=== PATIENT | male | born 1950 | race Caucasian/White ===

== ENCOUNTER 2018-12-19 00:51 | Inpatient (IN) | payer OTHER ==
[2018-12-19] MEDS ORDERED: EPINEPHrine 1 MG/ML AMP ONE (01:05)
[2018-12-19] MEDS ORDERED: diphenhydrAMINE 50 MG/ML VIAL ONE (01:05)
[2018-12-19] MEDS ORDERED: Famotidine/PF 20 mg/2ml Vial ONE (01:05)
[2018-12-19] MEDS ORDERED: methylPREDNISolone Sod Succ/PF 125 MG/2 ML VIAL ONE (01:05)
[2018-12-19 01:27] LABS: Hemoglobin 13.8 g/dL (14.0-18.0); Mean Corpuscular HGB CONC 33.6 g/dL (32.0-36.0); Mean Corpuscular Hemoglobin 31.1 pg (27.0-31.0); Mean Corpuscular Volume 92.8 fL (78.0-98.0); Mean Platelet Volume 7.9 fL (7.4-10.4); Platelet Count 207 thou/uL (130-400); RBC Distribution Width 12.4 % (11.5-14.5); Red Blood Cell (RBC) Count 4.45 mill/uL (4.70-6.10); White Blood Cell (WBC) Count 20.4 thou/uL (4.8-10.8)
[2018-12-19 01:42] LABS: Band 10 % (5-11); MDiff Complete? YES; Monocytes 3 % (0-10); Neutrophil 84 % (42-75); Platelet Morphology Comment Appears Adequate; RBC Morphology Normal; Reactive Lymphocytes 3 % (0-10)
[2018-12-19 01:53] LABS: ALT (SGPT) 10 U/L (8-55); AST (SGOT) 10 U/L (5-34); Albumin 3.6 g/dL (3.4-4.8); Alkaline Phosphatase 78 U/L (40-150); Anion Gap 18 mmol/L (10-20); BUN (Urea Nitrogen) 24 mg/dL (8.4-25.7); Bilirubin, Total 1.4 mg/dL (0.2-1.2); Calc. Creatinine Clearance 0 mL/min (70-130); Calcium 8.3 mg/dL (7.8-10.44); Carbon Dioxide 17 mmol/L (23-31); Chloride 101 mmol/L (98-107); Estimated GFR-MDRD 25; Globulin 2.8 g/dL (2.4-3.5); Glucose 111 mg/dL (80-115); Potassium 4.1 mmol/L (3.5-5.1); Protein, Total 6.4 g/dL (5.8-8.1); Sodium 132 mmol/L (136-145)
[2018-12-19] MEDS ORDERED: Clindamycin/D5W 900 mg/50 ml Premix Bag ONE (04:07)
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
[2018-12-19] MEDS ORDERED: Acetaminophen 500 MG TAB ONE (04:11)
[2018-12-19 04:48] LABS: Bilirubin Negative (Negative); Blood, Urine Trace (Negative); Clarity CLEAR (Clear); Glucose, Urine (Dipstick) Negative (Negative); Leukocyte Negative (Negative); Nitrite Negative (Negative); Protein, Urine (Dipstick) Negative (Neg-Trace); Specific Gravity, Urine 1.006 (1.002-1.036); Urobilinogen 0.2 mg/dL (0.2-1.0); pH, Urine 5.5 (5.0-9.0)
[2018-12-19 04:49] LABS: Bacteria/HPF None Seen HPF (None Seen); Hyaline Casts/LPF 0-3 HYALINE CAST LPF (0-3 Hyaline); Pathc Cast-AUWi Flag 0.43 (0-2.49); RBC/HPF 0-3 HPF (0-3); Squamous Epithelial 0-3 HPF (0-3); WBC/HPF 0-3 HPF (0-3)
[2018-12-19 05:31] LABS: Lactic Acid 1.7 mmol/L (0.5-2.2)
[2018-12-19] MEDS ORDERED: Acetaminophen 325 MG TAB PO PRN (06:32)
--- NOTE | 2018-12-19 08:12 | RAD ---
PORTABLE CHEST: Date: 12/19/18 HISTORY: Fever. FINDINGS: Heart size and mediastinum are within normal limits. Lungs are clear of infiltrates. No significant b chantal findings. There is some minimal subsegmental atelectatic change in the right base. IMPRESSION: Minimal parenchymal change in the right base suggestive of some subsegmental atelectasis. POS: [facility]
--- NOTE | 2018-12-19 08:14 | CT ---
PRELIMINARY REPORT/[facility]/EMERGENTY AFTER-HOURS PROCEDURE CT Abdomen and Pelvis Without Contrast EXAM DATE/TIME: 12/19/2018 3:17 AM CLINICAL HISTORY: 68 years old, male; Pain; Abdominal pain; Generalized; Patient HX: No previous exams; Er 8; Sepsis/ a bdominal pain; Patient with pustules to left thigh yesterday, went to [facility] at the correction and was g iven ancef and hydrocortisone. Patient with worsening swelling to thigh over the past day. Sudden onset swelling of lips and difficulty breathing this evening after ancef. No history of allerg ic reactions. Patient endorses chills and sweating. Endorses severe abdominal pain (generalized) for the past few hours. Denies vomiting or diarrhea. Surgical HX of appendectomy TECHNIQUE: Axial computed tomography images of the abdomen and pelvis without contrast. Coronal reformatted images were created and reviewed. COMPARISON: No relevant prior studies available. FINDINGS: Lower thorax: There is dependent atelectasis at the RIGHT lung base. ABDOMEN: Liver: The liver is within normal limits for this noncontrast study. Gallbladder and bile ducts: The gallbladder is normal. There is no evidence of biliary ductal dilatio n. Pancreas: The pancreas appears normal. No ductal dilatation. Spleen: The spleen is normal. Adrenals: The adrenal glands are normal. Kidneys and ureters: The right kidney is normal. The left kidney is normal. There is no evidence of h ydronephrosis. Stomach and bowel: The stomach is normal. The duodenum is unremarkable. Moderate diverticulosis is pr esent in the sigmoid and descending colon. Appendix: There has been an appendectomy. PELVIS: Bladder: The bladder is normal. Reproductive: The prostate gland and seminal vesicles are normal. ABDOMEN and PELVIS: Intraperitoneal space: There is a focus of extraluminal inflammation with central fat density. Bones/joints: There is moderate lumbar spinal canal stenosis on the basis of degenerative change. Soft tissues: Unremarkable. Vasculature: Normal. No abdominal aortic aneurysm. Lymph nodes: There is nonspecific LEFT inguinal reactive lymphadenopathy with surrounding inflammator y stranding. IMPRESSION: 1. There is nonspecific LEFT inguinal reactive lymphadenopathy with surrounding inflammatory strandin g. 2. There is a focus of extraluminal inflammation with central fat density. This is consistent with ac nulato epiploic appendagitis. Thank you for allowing us to participate in the care of your patient. Dictated and Authenticated by: Cruz Sibley MD 12/19/2018 3:36 AM Central Time ([place] & [place]) FINAL REPORT EMERGENCY AFTER HOURS CT ABDOMEN AND PELVIS PERFORMED WITHOUT CONTRAST ENHANCEMENT: Date: 12/19/18 HISTORY: Abdominal pain. Difficulty breathing. Severe abdominal pain for the past few hours. FINDINGS: The lung bases show atelectatic change versus some early infiltrative change in the right base. The liver, spleen, pancreas, and gallbladder regions appear unremarkable given the limitations of the noncontrast study. Right and left adrenal glands, and right and left kidneys are normal in size. No renal calculi. No si gnificant periaortic or mesenteric adenopathy. There is a mild amount of stool throughout the colon a nd colonic diverticulosis is noted. CT of pelvis was performed without contrast enhancement. Surgical clips appear to be related to previ ous appendectomy. There is an area of inflammatory change with central lucency within the epiploic fa t adjacent to the junction of the descending and sigmoid colon. There is some calcification associate d with this. I would favor that this is probably an older episode of epiploic appendagitis. There is diverticular disease in this area, but this does not have the appearance of diverticulitis. A moderat e amount of stool is seen within the colon. Of incidental note is inflammatory change in the medial aspect of the left thigh and left inguinal ad enopathy. IMPRESSION: 1. Fairly pronounced colonic diverticulosis. 2. Area of what is probably an old area of epiploic appendagitis in the descending colon. There appe ar to be some calcifications, which makes me believe that this is not acute in nature. 3. Soft tissue swelling along the medial aspect of the thigh with left inguinal adenopathy. This report is in agreement with the preliminary report issued by [facility]. POS: [facility]
[2018-12-19] MEDS ORDERED: predniSONE 20 MG TAB ONE (08:54)
[2018-12-19] MEDS: Lactated Ringer's 1,000 ML IV SCH ×3 (09:06→19:32)
[2018-12-19] MEDS: predniSONE 20 MG TAB PO SCH (09:07)
[2018-12-19] MEDS: Aspirin 81 mg Enteric Coated Tablet PO SCH (09:07)
--- NOTE | 2018-12-19 09:09 | ULT ---
SOFT TISSUE ULTRASOUND: Date: 12/19/18 HISTORY: Left leg cellulitis with pain, redness, and warm to touch for past 3 days, with concern for abscess. FINDINGS: Ultrasound examination with attention to the medial thigh through the region of clinical concern demo nstrates extensive edematous changes. There is a poorly circumscribed hypoechoic focus measuring appr oximately 1.2 x 3.3 x 3.9 cm, which certainly could represent an area of focal infection, including p hlegmon. This does not appear to be a well-defined fluid collection. IMPRESSION: 1.2 x 3.3 x 3.9 cm diameter poorly circumscribed hypoechoic focus in the medial left thigh with overl delgado subcutaneous edematous changes. Given history, this certainly could represent an area of infecti on, including a phlegmon. This could, by ultrasound appearance, represent a hematoma. This does not a ppear to be a well circumscribed easily drainable fluid collection. POS: [facility]
[2018-12-19] MEDS ORDERED: Clindamycin/D5W 600 MG in Premix Bag 1 BAG IVPB SCH (14:00)
[2018-12-19] MEDS: Heparin 5,000 UNITS/ML VIAL SC SCH ×2 (17:08→19:59)
[2018-12-19] MEDS: Vancomycin HCl 1 GM in Premix Bag 1 BAG IVPB SCH (17:28)
[2018-12-19] MEDS ORDERED: Fluticasone Propionate HFA 110 MCG AER INH SCH (18:30)
[2018-12-19] MEDS: Mometasone 100 MCG HFA INHALER INH SCH (19:31)
[2018-12-19] MEDS ORDERED: HYDROcodone/Acetaminophen 5/325 mg Tablet PO ONE (22:55)
[2018-12-20] MEDS: Lactated Ringer's 1,000 ML IV SCH ×2 (03:38→08:29)
[2018-12-20] MEDS: Vancomycin HCl 1 GM in Premix Bag 1 BAG IVPB SCH ×2 (04:28→16:14)
[2018-12-20 05:00] LABS: Anion Gap 12 mmol/L (10-20); BUN (Urea Nitrogen) 22 mg/dL (8.4-25.7); Calc. Creatinine Clearance 89 mL/min (70-130); Calcium 8.4 mg/dL (7.8-10.44); Carbon Dioxide 21 mmol/L (23-31); Chloride 110 mmol/L (98-107); Estimated GFR-MDRD 60; Glucose 139 mg/dL (80-115); Potassium 4.2 mmol/L (3.5-5.1); Sodium 139 mmol/L (136-145)
[2018-12-20 05:19] LABS: Band 25 % (5-11); Hemoglobin 11.7 g/dL (14.0-18.0); Lymphocytes 4 % (21-51); MDiff Complete? YES; Mean Corpuscular HGB CONC 32.9 g/dL (32.0-36.0); Mean Corpuscular Hemoglobin 31.1 pg (27.0-31.0); Mean Corpuscular Volume 94.4 fL (78.0-98.0); Mean Platelet Volume 8.2 fL (7.4-10.4); Metamyelocyte 2 % (0-0); Monocytes 8 % (0-10); Neutrophil 61 % (42-75); Platelet Count 170 thou/uL (130-400); Platelet Morphology Comment Appears Adequate; RBC Distribution Width 12.2 % (11.5-14.5); Red Blood Cell (RBC) Count 3.76 mill/uL (4.70-6.10); White Blood Cell (WBC) Count 15.8 thou/uL (4.8-10.8)
--- NOTE | 2018-12-20 06:15 | PDOC.FM ---
- Subjective Subjective: Mr. Moore is resting comfortably in bed, he reports the swelling in his face and leg has moved. Denies fever, erythema - Objective Vital Signs & Weight: Vital Signs (12 hours) Temp Pulse Resp BP Pulse Ox 12/20/18 04:00 97.2 F L 60 16 116/57 L 94 L 12/20/18 00:30 78 16 120/59 L 98 12/20/18 00:00 98.9 F 80 16 88/46 L 97 12/19/18 19:31 75 18 95 12/19/18 19:15 98.6 F 75 16 125/74 96 Weight Weight 108.545 kg I&O: 12/18/18 12/19/18 12/20/18 06:59 06:59 06:59 Intake Total 2870 Output Total 1850 Balance 1020 Result Diagrams: 12/21/18 04:28 12/21/18 04:27 Phys Exam - Physical Examination Constitutional: NAD HEENT: moist MMs dependent edema to R jaw, erythema improved Neck: no nodes, no JVD Respiratory: clear to auscultation bilateral Cardiovascular: RRR, no significant murmur Gastrointestinal: soft, non-tender Musculoskeletal: pulses present Neurological: moves all 4 limbs Psychiatric: normal affect Deviation from normal: decreased erythema, edema consolidated, no fluctuance noted Dx/Plan (1) Sepsis Code(s): A41.9 - SEPSIS, UNSPECIFIED ORGANISM Status: Acute (2) Cellulitis Code(s): L03.90 - CELLULITIS, UNSPECIFIED Status: Acute (3) Anaphylaxis Code(s): T78.2XXA - ANAPHYLACTIC SHOCK, UNSPECIFIED, INITIAL ENCOUNTER Status : Acute (4) COPD (chronic obstructive pulmonary disease) Status: Acute (5) GERD (gastroesophageal reflux disease) Code(s): K21.9 - GASTRO-ESOPHAGEAL REFLUX DISEASE WITHOUT ESOPHAGITIS Status: Acute (6) HTN (hypertension) Code(s): I10 - ESSENTIAL (PRIMARY) HYPERTENSION Status: Acute (7) Osteoarthritis Code(s): M19.90 - UNSPECIFIED OSTEOARTHRITIS, UNSPECIFIED SITE Status: Acute - Plan Plan: Sepsis 2/2 cellulitis - Febrile, hypotensive, leukocytosis all have resolved - Continue Vanc and Clindamycin - S/p 30ml/kg fluid resuscitation - LR @150, slow down fluids today, PO hydrate - Urine and blood cultures pending - US of leg reveals no drainable abscess, phlegmon vs hematoma - repeat US in coming days Anaphylaxis vs Angioedema - likely 2/2 Cephalexin/Cefazolin vs angioedema 2/2 lisinopril - S/p Epi, famotidine, Benadryl and methylpred in ED - Symptoms improving - Avoid penicillins - Closely monitor respiratory status HTN - Holding home amlodipine and isosorbide for hypotension - Holding lisinopril for hypotension and may have cause angioedema COPD/Asthma - Continue home Flovent - Duonebs PRN Angina - No stress or cath in records - Pt currently chest pain free - Continue home ASA CKD - Avoid nephrotoxic medications - Continue to monitor with daily BMP GERD - Continue home Omeprazole Hx of tobacco/ETOH/drug Abuse Incarceration Code Status: FULL DVT ppx: Heparin Dispo: consider transfer out of the [facility] today if pressures remain stable. Addendum - Attending - Attending Attestation Date/Time: 12/21/18 2185 I personally evaluated the patient and discussed the management with Dr. Hebert on 12/20/2018 I agree with the History, Examination, Assessment and Plan documented above with any addition or exceptions noted below- Patient feeling better; decreased pain. Afebrile VSS. A/P: 1) Cellulitis- improved; Continue current meds. 2) Sepsis with hypotension- resolving. stable for transfer from [facility]. 3) Anaphylaxis - resolved. Continue monitoring.
[2018-12-20] MEDS: Mometasone 100 MCG HFA INHALER INH SCH ×2 (07:23→19:43)
[2018-12-20] MEDS: predniSONE 20 MG TAB PO SCH (08:28)
[2018-12-20] MEDS: Heparin 5,000 UNITS/ML VIAL SC SCH ×3 (08:29→20:24)
[2018-12-20] MEDS: Aspirin 81 mg Enteric Coated Tablet PO SCH (08:29)
[2018-12-21 04:58] LABS: #Lymphocytes 1.5 thou/uL (1.20-3.40); #Monocytes 0.8 thou/uL (0.11-0.59); #Neutrophils 14.2 thou/uL (1.40-6.50); %Basophils 0.1 % (0.0-1.0); %Eosinophils 0.2 % (0.0-10.0); %Lymphocytes 9.1 % (21.0-51.0); %Monocytes 4.7 % (0.0-10.0); Hemoglobin 12.3 g/dL (14.0-18.0); Mean Corpuscular HGB CONC 32.4 g/dL (32.0-36.0); Mean Corpuscular Hemoglobin 30.6 pg (27.0-31.0); Mean Corpuscular Volume 94.7 fL (78.0-98.0); Mean Platelet Volume 8.6 fL (7.4-10.4); Platelet Count 215 thou/uL (130-400); RBC Distribution Width 12.4 % (11.5-14.5); Red Blood Cell (RBC) Count 4.03 mill/uL (4.70-6.10); White Blood Cell (WBC) Count 16.5 thou/uL (4.8-10.8)
[2018-12-21 05:17] LABS: Vancomycin, Trough 14.2 ug/mL
[2018-12-21] MEDS: Vancomycin HCl 1 GM in Premix Bag 1 BAG IVPB SCH (05:18)
[2018-12-21 05:21] LABS: Anion Gap 14 mmol/L (10-20); BUN (Urea Nitrogen) 18 mg/dL (8.4-25.7); Calc. Creatinine Clearance 113 mL/min (70-130); Calcium 8.4 mg/dL (7.8-10.44); Carbon Dioxide 19 mmol/L (23-31); Chloride 110 mmol/L (98-107); Estimated GFR-MDRD 80; Glucose 85 mg/dL (80-115); Sodium 139 mmol/L (136-145)
--- NOTE | 2018-12-21 06:30 | PDOC.FM ---
- Subjective Subjective: Mr. maravilla is sitting up in bed, he is concerned he has not showered. He reports increased localized pain and redness in thigh. denies fever - Objective Vital Signs & Weight: Vital Signs (12 hours) Temp Pulse Resp BP Pulse Ox 12/21/18 04:00 98.6 F 66 18 131/75 97 12/21/18 00:00 98 F 75 18 130/64 98 12/20/18 20:20 98.7 F 84 18 125/83 99 12/20/18 19:43 82 16 98 Weight Weight 107.456 kg Most Recent Monitor Data Heart Rate from ECG 70 NIBP 130/70 NIBP BP-Mean 90 Respiration from ECG 16 SpO2 100 I&O: 12/19/18 12/20/18 12/21/18 06:59 06:59 06:59 Intake Total 2870 3600 Output Total 1850 4075 Balance 1020 -475 Result Diagrams: 12/21/18 04:28 12/21/18 04:27 Phys Exam - Physical Examination Constitutional: NAD HEENT: moist MMs Neck: no nodes Respiratory: clear to auscultation bilateral Cardiovascular: RRR, no significant murmur Gastrointestinal: soft, non-tender Musculoskeletal: no edema, pulses present Neurological: non-focal, normal sensation Lymphatic: no nodes Deviation from normal: localized area of soft tissue edema/erythema, possible fluctuance Dx/Plan (1) Sepsis Code(s): A41.9 - SEPSIS, UNSPECIFIED ORGANISM Status: Acute (2) Cellulitis Code(s): L03.90 - CELLULITIS, UNSPECIFIED Status: Acute (3) Anaphylaxis Code(s): T78.2XXA - ANAPHYLACTIC SHOCK, UNSPECIFIED, INITIAL ENCOUNTER Status : Acute (4) COPD (chronic obstructive pulmonary disease) Status: Acute (5) GERD (gastroesophageal reflux disease) Code(s): K21.9 - GASTRO-ESOPHAGEAL REFLUX DISEASE WITHOUT ESOPHAGITIS Status: Acute (6) HTN (hypertension) Code(s): I10 - ESSENTIAL (PRIMARY) HYPERTENSION Status: Acute (7) Osteoarthritis Code(s): M19.90 - UNSPECIFIED OSTEOARTHRITIS, UNSPECIFIED SITE Status: Acute - Plan Plan: Sepsis 2/2 cellulitis - Febrile, hypotensive, have resolved. mild leukocytosis. - DC vanc, transition to PO Clindamycin - S/p 30ml/kg fluid resuscitation - DC IVF, PO hydrate - Urine and blood cultures no growth to date - US of leg reveals no drainable abscess, phlegmon vs hematoma - possible consolidation of abscess, repeat US Anaphylaxis vs Angioedema - likely 2/2 Cephalexin/Cefazolin vs angioedema 2/2 lisinopril - S/p Epi, famotidine, Benadryl and methylpred in ED - Symptoms improving - Avoid penicillins - Closely monitor respiratory status HTN - Holding home amlodipine and isosorbide for hypotension - Holding lisinopril for hypotension and may have cause angioedema COPD/Asthma - Continue home Flovent - Duonebs PRN Angina - No stress or cath in records - Pt currently chest pain free - Continue home ASA CKD - Avoid nephrotoxic medications - Continue to monitor with daily BMP GERD - Continue home Omeprazole Hx of tobacco/ETOH/drug Abuse Incarceration Code Status: FULL DVT ppx: Heparin Dispo: transition to PO abx, monitor. possible DC today or tomorrow Addendum - Attending - Attending Attestation Date/Time: 12/21/18 9331 I personally evaluated the patient and discussed the management with Dr. Hebert I agree with the History, Examination, Assessment and Plan documented above with any addition or exceptions noted below- Patient c/o pain and redness on right inner thigh. Afebrile VSS. A/P: 1) Cellulitis- overall erythema improved; area of induration but no fluctuance more demarcated on right inner thigh. tender to palpation. Will repeat soft tissue USG to evalaute for fluid collection/abscess. Continue abx. 2) Anaphylaxis- resolved. 3) HTN- increase meds.
[2018-12-21] MEDS: Mometasone 100 MCG HFA INHALER INH SCH ×2 (07:41→19:07)
[2018-12-21] MEDS: Aspirin 81 mg Enteric Coated Tablet PO SCH (09:20)
[2018-12-21] MEDS: predniSONE 20 MG TAB PO SCH (09:20)
[2018-12-21] MEDS: Heparin 5,000 UNITS/ML VIAL SC SCH ×3 (09:21→20:47)
[2018-12-21] MEDS: Clindamycin 150 MG CAP PO SCH ×3 (10:39→20:47)
--- NOTE | 2018-12-21 13:17 | ULT ---
SOFT TISSUE ULTRASOUND: HISTORY: Followup abnormal findings in left thigh in a patient with cellulitis and redness with concern for ab scess. COMPARISON: 12/19/2018. FINDINGS: Again noted is extensive superficial subcutaneous edematous changes and swelling. There is noted to be a slightly more well defined hypoechoic process in what appears to be the deep portion of the supe rficial soft tissue superficial to underlying muscle. This abnormal well defined collection measures approximately 0.8 cm in anterior posterior dimension and approximately 4.3 cm in craniocaudal dimens ion and approximately 4.7 cm transversely. This is in the region of the previously noted somewhat mo re well defined hypoechoic process. This does appear to be more well defined on today's study and th e technologist indicates that when she compressed the region overlying this area that this slightly h ypoechoic echogenic material within this collection did show movement and motion. This certainly cou ld represent a very thick exudative abscess or focal area of tissue necrosis or even a hematoma. I d o not think that this would be very easily percutaneously drainable because of the very thick echogen ic material within it. It could possibly be aspirated with ultrasound guidance for culture. IMPRESSION: Somewhat more well defined echogenic collection within the deep portion of the superficial soft tissu es overlying musculature. This echogenic material did show some movement or motion when compressed a nd possibilities include that of abscess, necrotic material, or hematoma. This area is somewhat more defined and somewhat larger than on the prior study of 12/19/2018. CODE T POS: [facility]
--- NOTE | 2018-12-21 18:27 | HP ---
HISTORY OF PRESENT ILLNESS: Anant Moore is a 68-year-old male, incarcerated for 2 years, presents to the hospital with a 5-day history of left medial thigh infection. He initially noticed it is too small bump, scratched, and they become larger. He has been hospitalized since 12/19/2018 on the [facility] service. Initially, ultrasound of the medial left thigh did not reveal anything to suggest an abscess, but today repeat ultrasounds suggest a deeper collection of an abscess or necrotic material hematoma and is somewhat larger than the prior study. He dinner. Plan is to drain this under anesthesia tomorrow. He understands wound will be left open secondary intention. ALLERGIES: PENICILLIN, LISINOPRIL, AND FENTANYL. SOCIAL HISTORY: Tobacco abuse in the past prior to incarceration, none for 2 years. Alcohol, occasional use prior to incarceration. MEDICATIONS: At home; Flovent, Proventil HFA, isosorbide mononitrate, Norvasc, aspirin, Cleocin. In the hospital; he is on clindamycin. PAST SURGICAL HISTORY: 1. Appendectomy. 2. Spinal surgery. 3. History of tobacco abuse. 4. COPD. PHYSICAL EXAMINATION: VITAL SIGNS: Height 6 foot 3 inches, weight 336 pounds, 29 BMI. Temperature 98.5, 133/69, 90. HEAD, EARS, EYES, NOSE, AND THROAT: Unremarkable. LUNGS: Clear to auscultation. CARDIAC: Regular rate and rhythm without murmur or gallop. ABDOMEN: Soft and nontender. EXTREMITIES: Left medial thigh redness, induration and deep tissues, they are suggesting perhaps an abscess, certainly induration. DIAGNOSTIC STUDIES: White count 86405 down from 20,000 on admission up from 16,000 yesterday. Basic metabolic profile normal. ASSESSMENT AND PLAN: Left medial thigh abscess. PLAN: Incision and drainage under anesthesia tomorrow. The wound will be left open, heal by secondary intention. Job ID: [id number]
[2018-12-22] MEDS: Clindamycin 150 MG CAP PO SCH ×4 (02:39→20:31)
--- NOTE | 2018-12-22 06:43 | PDOC.FM ---
- Subjective Subjective: Mr. Moore is sleeping comfortably in bed, he denies fever or chills. - Objective Vital Signs & Weight: Vital Signs (12 hours) Temp Pulse Resp BP Pulse Ox 12/22/18 04:34 98.3 F 61 18 133/75 95 12/21/18 20:40 98.2 F 60 18 132/68 96 Weight Weight 107.456 kg Most Recent Monitor Data Heart Rate from ECG 70 NIBP 170/88 NIBP BP-Mean 115 Respiration from ECG 16 SpO2 98 I&O: 12/20/18 12/21/18 12/22/18 06:59 06:59 06:59 Intake Total 2870 3600 1510 Output Total 1850 4075 1475 Balance 1020 -475 35 Result Diagrams: 12/22/18 07:41 12/22/18 07:41 Phys Exam - Physical Examination Constitutional: NAD (d) HEENT: moist MMs Neck: no JVD Gastrointestinal: no distention Musculoskeletal: no edema Neurological: moves all 4 limbs Psychiatric: normal affect Dx/Plan (1) Sepsis Code(s): A41.9 - SEPSIS, UNSPECIFIED ORGANISM Status: Acute (2) Cellulitis Code(s): L03.90 - CELLULITIS, UNSPECIFIED Status: Acute (3) Anaphylaxis Code(s): T78.2XXA - ANAPHYLACTIC SHOCK, UNSPECIFIED, INITIAL ENCOUNTER Status : Acute (4) COPD (chronic obstructive pulmonary disease) Status: Acute (5) GERD (gastroesophageal reflux disease) Code(s): K21.9 - GASTRO-ESOPHAGEAL REFLUX DISEASE WITHOUT ESOPHAGITIS Status: Acute (6) HTN (hypertension) Code(s): I10 - ESSENTIAL (PRIMARY) HYPERTENSION Status: Acute (7) Osteoarthritis Code(s): M19.90 - UNSPECIFIED OSTEOARTHRITIS, UNSPECIFIED SITE Status: Acute - Plan Plan: Sepsis 2/2 cellulitis - Febrile, hypotensive, have resolved. mild leukocytosis. - PO Clindamycin - S/p 30ml/kg fluid resuscitation, DC IVF, PO hydrate - Urine and blood cultures no growth to date - US of leg reveals density, possible abscess - general surgery consult, I&D under anesthesia today Anaphylaxis vs Angioedema - likely 2/2 Cephalexin/Cefazolin vs angioedema 2/2 lisinopril - S/p Epi, famotidine, Benadryl and methylpred in ED - Symptoms improving - Avoid penicillins - Closely monitor respiratory status HTN - resume amlodipine. Holding isosorbide for hypotension - Holding lisinopril for hypotension and may have cause angioedema COPD/Asthma - Continue home Flovent - Duonebs PRN Angina - No stress or cath in records - Pt currently chest pain free - Continue home ASA CKD - Avoid nephrotoxic medications - Continue to monitor with daily BMP GERD - Continue home Omeprazole Hx of tobacco/ETOH/drug Abuse Incarceration Code Status: FULL DVT ppx: Heparin Dispo: I&D today Addendum - Attending - Attending Attestation Date/Time: 12/22/18 [id number] I personally evaluated the patient and discussed the management with Dr. Hebert I agree with the History, Examination, Assessment and Plan documented above with any addition or exceptions noted below- Patient without complaints except for pain along left inner thigh. Afebrile VSS. A/P: 1) Abscess with overlying cellultis- plan for I&D today with surgery; appreciate surgery assistance. continue current abx. 2) HTN- stable; continue home meds.
[2018-12-22 08:06] LABS: Hemoglobin 13.4 g/dL (14.0-18.0); Mean Corpuscular HGB CONC 32.6 g/dL (32.0-36.0); Mean Corpuscular Hemoglobin 30.7 pg (27.0-31.0); Mean Corpuscular Volume 94.3 fL (78.0-98.0); Platelet Count 281 thou/uL (130-400); RBC Distribution Width 12.5 % (11.5-14.5); Red Blood Cell (RBC) Count 4.37 mill/uL (4.70-6.10); White Blood Cell (WBC) Count 13.5 thou/uL (4.8-10.8)
[2018-12-22 08:10] LABS: Anion Gap 12 mmol/L (10-20); BUN (Urea Nitrogen) 20 mg/dL (8.4-25.7); Calc. Creatinine Clearance 106 mL/min (70-130); Calcium 8.9 mg/dL (7.8-10.44); Carbon Dioxide 25 mmol/L (23-31); Chloride 106 mmol/L (98-107); Estimated GFR-MDRD 74; Glucose 79 mg/dL (80-115); Potassium 3.8 mmol/L (3.5-5.1); Sodium 139 mmol/L (136-145)
[2018-12-22] MEDS: Mometasone 100 MCG HFA INHALER INH SCH ×2 (08:11→18:41)
[2018-12-22] MEDS: Amlodipine 5 MG TAB PO SCH (08:19)
[2018-12-22] MEDS: Aspirin 81 mg Enteric Coated Tablet PO SCH (08:20)
[2018-12-22] MEDS: Heparin 5,000 UNITS/ML VIAL SC SCH ×3 (08:20→20:38)
[2018-12-22] MEDS: predniSONE 20 MG TAB PO SCH (08:20)
[2018-12-22] MEDS: Sodium Chloride 0.9% 1,000 ML IV SCH ×2 (08:33→16:54)
[2018-12-22 09:06] LABS: Band 7 % (5-11); Eosinophils 3 % (0-10); Lymphocytes 20 % (21-51); MDiff Complete? YES; Monocytes 5 % (0-10); Neutrophil 65 % (42-75); Platelet Morphology Comment Appears Adequate; Polychromasia SLIGHT = 2-3 cells (100X) (0-2/hpf)
[2018-12-22 12:05] VITALS: BMI 29.6
[2018-12-22] MEDS ORDERED: Sodium Chloride 0.9% 0 ML ONE (14:43)
[2018-12-22] MEDS ORDERED: Morphine 4 MG/ML VIAL ONE ×2 (14:54→16:20)
[2018-12-22] MEDS ORDERED: Lidocaine 2% PF 5 ML VIAL ONE (15:03)
[2018-12-22] MEDS ORDERED: Bupivacaine HCl 0.5%/Epinephrine 1:200,000/PF 30 ml Vial ONE (15:03)
[2018-12-22] MEDS ORDERED: traMADol HCl 50 MG TAB PO PRN (15:18)
[2018-12-22] MEDS ORDERED: Acetaminophen 500 MG TAB PO PRN (15:18)
[2018-12-22] MEDS ORDERED: Ibuprofen 600 MG TAB PO PRN (15:18)
[2018-12-22] MEDS ORDERED: PACU-Morphine 4MG/ML VIAL SLOW IVP PRN (15:59)
[2018-12-22] MEDS ORDERED: Ondansetron HCl/PF 4 MG/2 ML Vial IVP PRN (15:59)
[2018-12-22] MEDS ORDERED: Promethazine HCl 25 MG/ML VIAL IM PRN (15:59)
[2018-12-22] MEDS ORDERED: Promethazine HCl 25 MG/ML VIAL SLOW IVP PRN (15:59)
--- NOTE | 2018-12-22 18:48 | OP ---
DATE OF PROCEDURE: 12/22/2018 PREOPERATIVE DIAGNOSIS: Left medial thigh deep abscess. POSTOPERATIVE DIAGNOSIS: Left medial thigh deep, large abscess. PROCEDURE PERFORMED: Incision and drainage of deep left medial thigh abscess deep to the subcutaneous tissue, culture and sensitivity submitted to microbiology. ANESTHESIA: General, local with 0.5% Marcaine with epinephrine 30 mL mixed with 2% Xylocaine 10 mL. DESCRIPTION OF PROCEDURE: The patient was taken to the operating room under general anesthesia in the dorsal lithotomy position. Left medial thigh and groin prepared with ChloraPrep and draped in routine fashion. Incision was made longitudinally over the fluctuant area and a deep abscess drained. An 8 cm incision made and about 4 cm deep, there was a deep abscess drained. Copious amounts of purulent material evacuated, irrigated. Hemostasis gained with cautery. Wound was irrigated. Local anesthetic was infiltrated in to the skin and subcutaneous tissue. Wound Care arrived to place a wound VAC. The patient tolerated the procedure well. Job ID: [id number]
[2018-12-22] MEDS: traMADol HCl 50 MG TAB PO PRN (21:03)
[2018-12-23] MEDS: Clindamycin 150 MG CAP PO SCH ×3 (02:25→15:08)
[2018-12-23] MEDS: traMADol HCl 50 MG TAB PO PRN (06:25)
[2018-12-23 06:39] LABS: Anion Gap 13 mmol/L (10-20); BUN (Urea Nitrogen) 23 mg/dL (8.4-25.7); Calc. Creatinine Clearance 104 mL/min (70-130); Calcium 8.3 mg/dL (7.8-10.44); Carbon Dioxide 21 mmol/L (23-31); Chloride 106 mmol/L (98-107); Estimated GFR-MDRD 72; Glucose 93 mg/dL (80-115); Potassium 4.2 mmol/L (3.5-5.1); Sodium 136 mmol/L (136-145)
--- NOTE | 2018-12-23 06:40 | PDOC.FM ---
- Subjective Subjective: Mr. Moore is resting comfortably in bed, he reports sores near his eye/lip, painful. denies fever/chills - Objective Vital Signs & Weight: Vital Signs (12 hours) Temp Pulse Resp BP BP Pulse Ox 12/23/18 04:00 97.8 F 65 18 134/86 97 12/23/18 00:00 97.8 F 62 20 106/58 L 111/69 94 L 12/22/18 19:23 97.6 F 79 18 142/72 H 97 12/22/18 18:41 71 16 97 Weight Admit Weight 107.456 kg Weight 107.456 kg Most Recent Monitor Data Heart Rate from ECG 70 NIBP 170/88 NIBP BP-Mean 115 Respiration from ECG 16 SpO2 98 I&O: 12/21/18 12/22/18 12/23/18 06:59 06:59 06:59 Intake Total 3600 2360 1600 Output Total 4075 2325 610 Balance -475 35 990 Result Diagrams: 12/22/18 07:41 12/23/18 05:39 Phys Exam - Physical Examination Constitutional: NAD HEENT: moist MMs Neck: no JVD Gastrointestinal: no distention Musculoskeletal: no edema, pulses present Neurological: moves all 4 limbs Lymphatic: no nodes Psychiatric: normal affect Deviation from normal: reduced erythema/edema, wound vac in place Dx/Plan (1) Sepsis Code(s): A41.9 - SEPSIS, UNSPECIFIED ORGANISM Status: Acute (2) Cellulitis Code(s): L03.90 - CELLULITIS, UNSPECIFIED Status: Acute (3) Anaphylaxis Code(s): T78.2XXA - ANAPHYLACTIC SHOCK, UNSPECIFIED, INITIAL ENCOUNTER Status : Acute (4) COPD (chronic obstructive pulmonary disease) Status: Acute (5) GERD (gastroesophageal reflux disease) Code(s): K21.9 - GASTRO-ESOPHAGEAL REFLUX DISEASE WITHOUT ESOPHAGITIS Status: Acute (6) HTN (hypertension) Code(s): I10 - ESSENTIAL (PRIMARY) HYPERTENSION Status: Acute (7) Osteoarthritis Code(s): M19.90 - UNSPECIFIED OSTEOARTHRITIS, UNSPECIFIED SITE Status: Acute - Plan Plan: Sepsis 2/2 cellulitis - Febrile, hypotensive, have resolved. mild leukocytosis. - PO Clindamycin - S/p 30ml/kg fluid resuscitation, DC IVF, PO hydrate - Urine and blood cultures no growth to date - US of leg reveals density, possible abscess - s/p I&D Anaphylaxis vs Angioedema - likely 2/2 Cephalexin/Cefazolin vs angioedema 2/2 lisinopril - S/p Epi, famotidine, Benadryl and methylpred in ED - Symptoms improving, post inflammatory skin changes present - Avoid penicillins - Closely monitor respiratory status HTN - resume amlodipine. Holding isosorbide for hypotension - Holding lisinopril for hypotension and may have cause angioedema COPD/Asthma - Continue home Flovent - Duonebs PRN Angina - No stress or cath in records - Pt currently chest pain free - Continue home ASA CKD - Avoid nephrotoxic medications - Continue to monitor with daily BMP GERD - Continue home Omeprazole Hx of tobacco/ETOH/drug Abuse Incarceration Code Status: FULL DVT ppx: Heparin Dispo: DC today
[2018-12-23] MEDS: Amlodipine 5 MG TAB PO SCH (08:00)
[2018-12-23] MEDS: Heparin 5,000 UNITS/ML VIAL SC SCH ×2 (08:00→15:08)
[2018-12-23] MEDS: Aspirin 81 mg Enteric Coated Tablet PO SCH (08:00)
[2018-12-23] MEDS: Mometasone 100 MCG HFA INHALER INH SCH (08:11)
--- NOTE | 2018-12-23 08:58 | PRG ---
DATE OF SERVICE: 12/23/2018 SUBJECTIVE: The patient is one day status post I and D of left thigh abscess. Says he feels better. No numbness or tingling down his legs. LABORATORY DATA: His temperature is 98.1, pulse 67, blood pressure 155/82. Leg looks good. He has minimal swelling, minimal cellulitis. The wound VAC is putting out, some serosanguineous/seropurulent fluid. Cultures grew out Staph aureus. His white count is 13.5, down from 16 yesterday. ASSESSMENT: Left thigh abscess. PLAN: Continue medical management. Job ID: [id number]
[2018-12-23 09:09] LABS: Band 3 % (5-11); Eosinophils 4 % (0-10); Hemoglobin 13.7 g/dL (14.0-18.0); Lymphocytes 28 % (21-51); MDiff Complete? YES; Mean Corpuscular HGB CONC 32.5 g/dL (32.0-36.0); Mean Corpuscular Hemoglobin 30.4 pg (27.0-31.0); Mean Corpuscular Volume 93.8 fL (78.0-98.0); Mean Platelet Volume 7.3 fL (7.4-10.4); Monocytes 10 % (0-10); Neutrophil 55 % (42-75); Platelet Count 266 thou/uL (130-400); RBC Distribution Width 12.6 % (11.5-14.5); Red Blood Cell (RBC) Count 4.49 mill/uL (4.70-6.10); White Blood Cell (WBC) Count 13.9 thou/uL (4.8-10.8)
[2018-12-23] MEDS ORDERED: Polyethylene Glycol 3350 17 GM Packet PO SCH (14:45)
[2018-12-23 16:23] VITALS: BP 125/80; TEMP 97.7
[2018-12-23] MEDS ORDERED: valACYclovir 500 MG TAB PO SCH (21:00)
--- NOTE | 2018-12-24 10:49 | DIS ---
DATE OF ADMISSION: 12/19/2018 DATE OF DISCHARGE: 12/23/2018 RESIDENT: Hemant Hebert DO. ADMITTING ATTENDING: Tomer Mcpherson MD. DISCHARGE ATTENDING: Ha Peng MD. CONSULTS: General Surgery: Dr. Lincoln. PROCEDURES: Surgical incision and drainage of left thigh abscess. PRIMARY DIAGNOSIS: Cellulitis/abscess. SECONDARY DIAGNOSES: 1. Anaphylaxis versus angioedema. 2. Hypertension. 3. Chronic obstructive pulmonary disease/asthma. 4. Angina. 5. Chronic kidney disease. 6. Gastroesophageal reflux disease. 7. History of tobacco, alcohol, or drug abuse. DISCHARGE MEDICATIONS: 1. Flovent 1 puff inhaled b.i.d. 2. Norvasc 5 mg p.o. q.a.m. 3. Aspirin 81 mg p.o. q.a.m. 4. Omeprazole 20 mg p.o. q.p.m. 5. Isosorbide mononitrate 30 mg p.o. q.a.m. 6. Fluticasone nasal spray one spray inhaled b.i.d. 7. Proventil 2 puffs inhaled q.4 hours p.r.n. 8. Clindamycin 300 mg p.o. q.6 hours for six days. 9. Valtrex 2000 mg p.o. b.i.d. for one day. DISCONTINUED MEDICATIONS: Lisinopril 20 mg p.o. daily. HISTORY OF PRESENT ILLNESS/HOSPITAL COURSE: Mr. Moore is a 68-year-old man presenting from group home with upper lip and face swelling with throat pain that started the night prior to admission at around 9 p.m. The day before that, he had noticed an area of redness and pain in his thigh that was increasing in size and he believes the head on at that he was able to scratch all. He was given Keflex for the skin infection. Shortly afterwards, he developed the lip and face swelling. Shortly after that, began developing dizziness/lightheadedness and difficulty breathing and swallowing. Blood pressure was also very low. He has no history to allergies or anaphylaxis. The patient was admitted to the hospital for observation and treatment of anaphylaxis and respiratory compromise. The skin cellulitis and sepsis secondary to cellulitis were treated with IV antibiotics. An ultrasound was performed, which did not show fluid collection originally, later in his hospital stay, the redness and erythema began to resolve and coalesced to a firm golf ball sized protuberance in his inner thigh and the ultrasound revealed a fluid collection. General surgery was consulted and took him back for incision and drainage of the abscess under anesthesia. The patient tolerated the procedure well. Wound VAC was placed for approximately 24 hours. The patient remained stable and afebrile. Vital signs were stable. Wound VAC was changed out to wet-to-dry dressings and the patient was okay to be discharged back to group home. DISPOSITION: Stable. DISCHARGE INSTRUCTIONS: Location: [facility] [place]. Diet: Heart healthy, low-sodium. Activity: As tolerated with wound care. Followup: Follow up with PCP and infirmary/Wound Care upon returning to group home. Job ID: [id number]
--- NOTE | 2018-12-25 10:10 | PRG ---
DATE OF SERVICE: ADDENDUM: Please see note from Dr. Hebert, for which I agree. The patient was seen, evaluated, examined, and discussed with the residents. SUBJECTIVE: The patient is a gentleman who had left thigh abscess that was incised and drained yesterday, now on a wound VAC and sounds like Surgery wants him on the wound VAC for at least a few days and then he will be packed. Also had either angioedema or allergic reaction with some lip swelling, but now has some vesicular lesions on the right lower lip and then just a slightly erythematous papular type lesion around the right eye. Wound looks good today on the VAC. ASSESSMENT AND PLAN: 1. Cellulitis abscess. Continue wound VAC and antibiotics, seems to be improving. 2. 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 Add any antiviral and obviously avoid angiotensin-converting enzyme inhibitors and that particular antibiotic in the future. Job ID: [id number]
== END 2018-12-23 16:53 | DRG 854 ==
LOC: EEVIPCON 00:51 → ERS 00:51 → ERHOLD 04:53 → OBSVTOIN 04:53 → IMCU/EMU 15:59 → T4-B 12-21 21:56
PROVIDERS: ADMIT Family Medicine; ATTEND Family Medicine
PROC: 0J9M0ZZ Drainage of Left Upper Leg Subcutaneous Tissue and Fascia, Open Approach (ICD-10-PCS; principal; 2018-12-19)
DX: A41.9 Sepsis, unspecified organism (principal); L02.416 Cutaneous abscess of left lower limb; J44.9 Chronic obstructive pulmonary disease, unspecified; K21.9 Gastro-esophageal reflux disease without esophagitis; M19.90 Unspecified osteoarthritis, unspecified site; I12.9 Hypertensive chronic kidney disease with stage 1 through stage 4 chronic kidney disease, or unspecified chronic kidney disease; N18.9 Chronic kidney disease, unspecified
CPT/HCPCS: 36415; 71045; 74176; 76999; 80048; 80053; 80202; 81003; 81015; 83605; 83690; 85025; 87040; 87070; 87077; 87086; 87186; 87205; 93005; 93010; 94760; 96361; 96365; 96366; 96372; 96375; J0171; J0670; J1200; J1644; J1956; J2001; J2270; J2930; J3370; J3490; J7050; J7506; S0028

== ENCOUNTER 2018-12-24 09:41 | Emergency (ER) | payer OTHER ==
[2018-12-24 10:49] LABS: #Basophils 0.1 thou/uL (0.0-0.2); #Eosinphils 0.7 thou/uL (0.0-0.7); #Lymphocytes 2.6 thou/uL (1.20-3.40); %Basophils 0.5 % (0.0-1.0); %Eosinophils 5.6 % (0.0-10.0); %Lymphocytes 19.5 % (21.0-51.0); %Monocytes 7.5 % (0.0-10.0); %Neutrophils 66.9 % (42.0-75.0); Hemoglobin 13.7 g/dL (14.0-18.0); Mean Corpuscular HGB CONC 32.9 g/dL (32.0-36.0); Mean Corpuscular Hemoglobin 31.1 pg (27.0-31.0); Mean Corpuscular Volume 94.6 fL (78.0-98.0); Mean Platelet Volume 7.2 fL (7.4-10.4); Platelet Count 310 thou/uL (130-400); RBC Distribution Width 12.8 % (11.5-14.5); White Blood Cell (WBC) Count 13.4 thou/uL (4.8-10.8)
--- NOTE | 2018-12-24 11:05 | RAD ---
CHEST 1 VIEW: Date: 12/24/18 INDICATION: Severe sepsis with COPD. COMPARISON: Prior exam dated 12/19/18. FINDINGS: Bibasilar interstitial opacities are again seen, more prominent within the right lung base, which may reflect areas of subsegmental volume loss. Heart size remains slightly upper limits of normal. No pl eural effusion or pneumothorax is evident. No acute osseous abnormality is evident. IMPRESSION: 1. Bibasilar interstitial opacities may reflect subsegmental atelectasis. No confluent air space opa city is evident to suggest pneumonia. No pleural effusion is evident. 2. Heart size remains upper limits of normal. POS: CET
[2018-12-24 11:13] LABS: ALT (SGPT) 25 U/L (8-55); AST (SGOT) 17 U/L (5-34); Albumin 3.2 g/dL (3.4-4.8); Alkaline Phosphatase 70 U/L (40-150); Anion Gap 14 mmol/L (10-20); BUN (Urea Nitrogen) 27 mg/dL (8.4-25.7); Bilirubin, Total 0.4 mg/dL (0.2-1.2); Calc. Creatinine Clearance 0 mL/min (70-130); Calcium 8.1 mg/dL (7.8-10.44); Carbon Dioxide 22 mmol/L (23-31); Chloride 103 mmol/L (98-107); Estimated GFR-MDRD 78; Globulin 2.8 g/dL (2.4-3.5); Glucose 83 mg/dL (80-115); Lipase 8 U/L (8-78); Potassium 4.2 mmol/L (3.5-5.1); Sodium 135 mmol/L (136-145)
[2018-12-24] MEDS ORDERED: Acetaminophen 500 MG TAB ONE (12:11)
[2018-12-24] MEDS ORDERED: Nitroglycerin 2% Ointment 1 INCH/1 GM Packet ONE (12:11)
== END 2018-12-24 15:03 | disposition short-term general hospital (02) ==
LOC: ERS 09:41 → EEVIPCON 09:41 → ERS 15:03
DX: R07.89 Other chest pain (principal); I10 Essential (primary) hypertension; J44.9 Chronic obstructive pulmonary disease, unspecified; F31.9 Bipolar disorder, unspecified; F43.10 Post-traumatic stress disorder, unspecified; Z87.891 Personal history of nicotine dependence
CPT/HCPCS: 36415; 71045; 80053; 82553; 83690; 84484; 85025; 93005

== ENCOUNTER 2019-08-03 13:53 | Emergency (ER) | payer OTHER ==
[2019-08-03] MEDS ORDERED: Clindamycin/D5W 900 mg/50 ml Premix Bag ONE (14:46)
[2019-08-03] MEDS ORDERED: Lidocaine 1% w/Epinephrine 1:100K 20 ML VIAL ONE (15:03)
[2019-08-03 15:11] LABS: Hemoglobin 12.9 g/dL (14.0-18.0); Mean Corpuscular HGB CONC 33.3 g/dL (32.0-36.0); Mean Corpuscular Hemoglobin 29.9 pg (27.0-31.0); Mean Corpuscular Volume 89.8 fL (78.0-98.0); RBC Distribution Width 13.2 % (11.5-14.5); Red Blood Cell (RBC) Count 4.31 mill/uL (4.70-6.10); White Blood Cell (WBC) Count 8.6 thou/uL (4.8-10.8)
[2019-08-03 15:28] LABS: Band 4 % (5-11); Eosinophils 5 % (0-10); Lymphocytes 6 % (21-51); MDiff Complete? YES; Mean Platelet Volume 7.2 fL (7.4-10.4); Monocytes 3 % (0-10); Neutrophil 81 % (42-75); Platelet Count 93 thou/uL (130-400); Platelet Morphology Comment Appears Decreased; Reactive Lymphocytes 1 % (0-10)
[2019-08-03 16:03] LABS: Albumin 3.5 g/dL (3.4-4.8)
[2019-08-03 16:04] LABS: Chloride 104 mmol/L (98-107); Potassium 3.8 mmol/L (3.5-5.1); Sodium 135 mmol/L (136-145)
[2019-08-03 16:05] LABS: Calcium 8.4 mg/dL (7.8-10.44); Glucose 97 mg/dL (80-115)
[2019-08-03 16:06] LABS: Globulin 2.8 g/dL (2.4-3.5); Protein, Total 6.3 g/dL (5.8-8.1)
[2019-08-03 16:07] LABS: Anion Gap 11 mmol/L (10-20); Bilirubin, Total 0.6 mg/dL (0.2-1.2); Carbon Dioxide 24 mmol/L (23-31)
[2019-08-03 16:08] LABS: Alkaline Phosphatase 84 U/L (40-150)
[2019-08-03 16:09] LABS: BUN (Urea Nitrogen) 14 mg/dL (8.4-25.7); Calc. Creatinine Clearance 0 mL/min (70-130); Estimated GFR-MDRD 58
[2019-08-03 16:10] LABS: AST (SGOT) 8 U/L (5-34)
[2019-08-03 16:11] LABS: ALT (SGPT) 8 U/L (8-55)
== END 2019-08-03 16:39 ==
LOC: ERS 13:53 → EEVIPCON 13:53 → ERS 16:39
DX: L02.31 Cutaneous abscess of buttock (principal); L03.317 Cellulitis of buttock; J44.9 Chronic obstructive pulmonary disease, unspecified; F31.9 Bipolar disorder, unspecified; F43.10 Post-traumatic stress disorder, unspecified; Z79.82 Long term (current) use of aspirin; Z79.899 Other long term (current) drug therapy
CPT/HCPCS: 10060; 36415; 80053; 83605; 85025; 87040; 96365; J2001; J3490

== ENCOUNTER 2019-08-05 23:40 | Emergency (ER) | payer OTHER | END 2019-08-06 00:51 | LOC: EEVIPCON 23:40 → ERS 23:40 | DX: L03.315 Cellulitis of perineum (principal); J44.9 Chronic obstructive pulmonary disease, unspecified; I12.9 Hypertensive chronic kidney disease with stage 1 through stage 4 chronic kidney disease, or unspecified chronic kidney disease; N18.9 Chronic kidney disease, unspecified; F31.9 Bipolar disorder, unspecified; F43.10 Post-traumatic stress disorder, unspecified; Z79.899 Other long term (current) drug therapy; Z79.82 Long term (current) use of aspirin | CPT/HCPCS: 99283 ==